=== PATIENT | male | born 1940 | race Caucasian/White ===

== ENCOUNTER 2019-02-08 05:28 | Day surgery (SDC) ==
[2019-02-02 12:41] LABS: HEMATOCRIT 44.6 % (42.0-52.0); MCH 30.4 PG (27-31); MCHC 33.6 g/dL (33-37); MCV 90.5 FL (81-99); MPV 9.9 FL (7.4-10.4); RBC 4.93 XMIL (4.7-6.1); WBC 8.51 X1000 (4.8-10.8)
[2019-02-02 12:59] LABS: AGAP 13; BUN 13 mg/dL (8-22); CALCIUM 9.5 mg/dL (8.8-10.2); CHLORIDE 97 mmol/L (98-107); COSMO 270; CREATININE 0.5 mg/dL (0.7-1.2); ESTIMATED GFR > 60; GLUCOSE 98 mg/dL (70-104); POTASSIUM 4.4 mmol/L (3.5-5.1); SODIUM 135 mmol/L (136-145); TCO2 25 mmol/L (25-35)
[2019-02-08] MEDS ORDERED: KEFZOL 1 GM/D5W 2 GM/100 ML IVPB ONE (06:06)
[2019-02-08] MEDS ORDERED: LR 1,000 ML ONE ×2 (06:06→06:41)
[2019-02-08] MEDS ORDERED: VALIUM ONE (06:23)
[2019-02-08] MEDS ORDERED: XYLOCAINE-MPF 2% ONE (06:37)
[2019-02-08] MEDS ORDERED: QUELICIN (DOSE) ONE (06:37)
[2019-02-08] MEDS ORDERED: ROBINUL ONE ×2 (06:37→07:16)
[2019-02-08] MEDS ORDERED: DIPRIVAN 1% ONE (06:38)
[2019-02-08] MEDS ORDERED: FENTANYL ONE (06:38)
[2019-02-08] MEDS ORDERED: SENSORCAINE 0.25%/EPI 1:200,000 ONE (06:40)
[2019-02-08] MEDS ORDERED: B & O 15A SUPP ONE (06:41)
[2019-02-08] MEDS ORDERED: STERILE WATER INJ. ONE (07:02)
[2019-02-08] MEDS ORDERED: NORCURON ONE ×2 (07:02→08:34)
[2019-02-08] MEDS ORDERED: ZOFRAN ONE (07:16)
[2019-02-08] MEDS ORDERED: NEOSTIGMINE ONE (07:16)
[2019-02-08] MEDS ORDERED: DECADRON ONE (07:16)
[2019-02-08] MEDS ORDERED: EPHEDRINE ONE (07:50)
[2019-02-08 08:16] LABS: URINE SOURCE CATH
[2019-02-08 08:24] LABS: BILIRUBIN URINE NEGATIVE (NEGATIVE); BLOOD URINE NEGATIVE (NEGATIVE); COLOR YELLOW; GLUCOSE URINE NEGATIVE (NEGATIVE); KETONE URINE NEGATIVE (NEGATIVE); LEUKOCYTES URINE NEGATIVE (NEGATIVE); NITRITE URINE NEGATIVE (NEGATIVE); PROTEIN URINE NEGATIVE (NEGATIVE); SP GRAVITY URINE 1.014; TURBIDITY URINE CLEAR (CLEAR); UROBILINOGEN URINE NORMAL (NORMAL)
[2019-02-08 08:25] LABS: UR EPITHELIAL CELLS <10 /HPF (<10); URINE BACTERIA NEGATIVE /HPF; URINE RBC <10 /HPF (<10); URINE WBC <10 /HPF (<10)
[2019-02-08] MEDS ORDERED: NS 1,000 ML ONE (10:59)
[2019-02-08] MEDS ORDERED: MORPHINE IV PRN (12:27)
[2019-02-08] MEDS ORDERED: DITROPAN PO PRN (12:30)
[2019-02-08] MEDS ORDERED: LABETALOL IV PRN (12:30)
[2019-02-08] MEDS ORDERED: BENADRYL LIQUID PO PRN (12:30)
[2019-02-08] MEDS ORDERED: SODIUM CHLORIDE 0.9% INJ PRN (12:30)
[2019-02-08] MEDS ORDERED: PHENERGAN IV PRN (12:30)
[2019-02-08] MEDS ORDERED: OXY IR PO PRN (12:30)
[2019-02-08] MEDS ORDERED: OFIRMEV 1000 MG/ISOTONIC SOLN 1,000 MG/100 ML BOTTLE IV PRN (12:30)
[2019-02-08] MEDS: NS 1,000 ML IV SCH ×2 (14:11→22:33)
[2019-02-08] MEDS: KEFZOL 2 GM/D5W 2 GM/50 ML IVPB IV SCH ×2 (14:11→22:33)
--- NOTE | 2019-02-08 15:05 | OPERATIVE NOTE ---
PROCEDURE DATE: 02/08/2019 SURGEON: Marciano Fragoso MD. PREOPERATIVE DIAGNOSIS: Prostate cancer. POSTOPERATIVE DIAGNOSIS: Prostate cancer. PROCEDURE PERFORMED: Laparoscopic robot-assisted radical retropubic prostatectomy with urethral suspension. ANESTHESIA: General endotracheal. FINDINGS: Normal appearing prostate with attached seminal vesicles and vas deferens. Large amount of intraabdominal adipose tissue. INDICATION FOR PROCEDURE: This 78-year-old male has history of elevated PSA. Transrectal prostate ultrasound and biopsies revealed adenocarcinoma Bi grade 3 + 3 in multiple cores, one core at 90% involvement. The various treatments were discussed with the patient and family for treating prostate cancer and he has decided on radical surgery. DESCRIPTION OF PROCEDURE: After informed consent was obtained from the patient and him receiving IV antibiotics, he was taken the main OR, placed in the supine position. General endotracheal anesthesia was achieved. He was then placed in the low lithotomy position and prepped and draped in the usual sterile fashion for abdominal, penile, scrotal, and perineal surgery. An 18-Kiswahili Neal catheter was passed through the patient's urethra, prostate, and in the bladder. 10 mL sterile water placed in Neal balloon. Neal was placed to gravity drain. A 3 cm incision was made just above the umbilicus. The Veress needle was then used to achieve pneumoperitoneum by placing the needle through that incision and into the peritoneal cavity. A water drop test was performed that revealed the needle in good position. The pneumoperitoneum to 15 cm of water was achieved. The patient is obese and it was felt that a longer trocar may be needed. The administrative sales assistant trocar placed in the left upper quadrant was then placed and a camera was placed through that trocar and it was felt a longer trocar was not needed. The remaining trocars were placed in the standard position. The left trocar (#2 arm) was placed 1-1/2 handbreadths lateral to the camera port. The #1 arm was placed 1 handbreadth to the right of the camera port and the #4 arm was placed just above the anterior superior iliac spine on the right. After the trocars were placed, the patient was placed in steep Trendelenburg and the table lowered all the way down. The robot was docked. The procedure was started by taking down some adhesions. It appeared he had a hernia with the sigmoid colon going into the hernia. The colon was able to be moved out of the way to reach the rectum without difficulty. An incision was made in the peritoneum as it reflected off the rectum about 1 cm up. This was taken through the tissue to the vas deferens on the right. This was dissected free and the left vas was dissected free as well. Both met in the midline indicating there were not ureters. The left vas deferens and its artery was incised. The seminal vesicles bluntly and sharply dissected free. A clip was placed on its vascular pedicle and it was dissected back to the base of the prostate. Right side was accomplished similarly. Attention was then turned to the anterior abdominal wall where an incision was made medial to the internal inguinal ring on the right side. This was taken down to the vas deferens as it went down into the pelvis and up onto the anterior abdominal wall. An incision was made in the peritoneum medial to the internal inguinal ring on the left and dissected up onto the anterior abdominal wall. The medial and median umbilical ligaments were taken down sharply and the bladder was dropped off the anterior abdominal wall with blunt and sharp dissection. This was taken down into the true bony pelvis. The fibrofatty tissue off the anterior and lateral sides of the prostate were removed bluntly and sharply. The endopelvic fascia on the right side was entered lateral to the prostate and this incision was taken back to the base of the prostate and up to the puboprostatic ligaments. The puboprostatic ligament was taken down sharply. Both sides were accomplished similarly. The dorsal vein complex was ligated using a 2-0 V-Loc suture. The suture was passed under the dorsal vein complex but anterior to the urethra. It was then passed through the tail of the suture. The suture was then passed back under the dorsal vein complex, through the periosteum of the pubis, back under the dorsal vein complex and through the periosteum of the pubis. This securely ligated the dorsal vein complex. Attention was then turned to the bladder neck area. The bladder neck was incised at the prostatic vesicular junction and the bladder sharply dissected off the base of the prostate. The bladder was entered. The Neal catheter was pulled out through the cystotomy and used as a traction device. The posterior bladder neck was incised and the bladder completely dissected off the base of the prostate. This went to the previously dissected space where the seminal vesicles and vas deferens were located. The seminal vesicles and vas deferens were brought up through this incision and held in place with the 4th arm. The incised area was enlarged. The prostate pedicles were then taken down with clips and dissected all the way down to the apex of the prostate. Again both sides were accomplished similarly. The dorsal vein tissue as it spread out over the apex of the prostate was incised. The urethra was entered just distal to the prostatic apex. The Neal catheter was visualized and pulled back. The posterior urethra was incised and the remaining fibers of the rectourethralis muscle were incised. The prostate was then placed in an Endo Catch retrieval bag and moved to the side. A 3-0 V-Loc suture was used to anastomose the vesicovisceral fascia to the posterior rhabdosphincter. The ends of these needles were capped to allow it to be placed through the periosteum of the pubis, which will act as a urethral suspension. The bladder was anastomosed to the urethra with a running suture of 3-0 V-Loc. After the anastomosis was complete, the needles were removed. The Neal catheter easily passed into the bladder and irrigated without difficulty. The bladder was distended to over 60 mL. No leakage was seen. The Neal was placed to gravity drain. The previously placed sutures that anastomosed the vesicovisceral fascia to the posterior rhabdosphincter were then passed through the periosteum of the pubis and tension was placed on this to suspend the urethra. The needles were passed out of the body. Surgicel SNoW was then placed on either side of the bladder at the anastomotic area. Pneumoperitoneum was dropped to 3 cm of water and no bleeding was seen. The Endo Catch retrieval bag string was brought out through the camera port. The robot was undocked. Pneumoperitoneum resolved. The patient's table was placed in the supine position. The camera port incision was extended for a total length of about 4 cm. The Bovie electrocautery was used to incise the abdominal rectus fascia. The prostate was removed and sent to Pathology. The abdominal rectus fascia was reapproximated with interrupted sutures of #1 Maxon. The subcutaneous tissue was reapproximated with interrupted sutures of 3-0 Vicryl. The skin was reapproximated with clips. Island dressings were placed. He tolerated the procedure well. Estimated blood loss 50 mL. He was taken to the recovery room, extubated in good condition. cc: Marciano Fragoso MD
[2019-02-08] MEDS: OXY IR PO PRN ×2 (15:59→22:33)
[2019-02-08] MEDS ORDERED: TYLENOL PO PRN (17:22)
[2019-02-08] MEDS: COLACE PO SCH (20:27)
[2019-02-08] MEDS: PEPCID PO SCH (20:27)
[2019-02-08] MEDS ORDERED: ALTACE PO SCH (21:00)
[2019-02-08] MEDS ORDERED: CELEXA PO SCH (21:00)
[2019-02-08] MEDS ORDERED: COREG PO SCH (21:00)
[2019-02-08] MEDS ORDERED: PRAVACHOL PO SCH (21:00)
[2019-02-08] MEDS ORDERED: GLUCOSAMINE PO SCH (21:00)
[2019-02-09] MEDS: OXY IR PO PRN (03:46)
[2019-02-09 07:08] LABS: HEMATOCRIT 39.8 % (42.0-52.0); HEMOGLOBIN 13.1 g/dL (14.0-18.0); MCH 30.9 PG (27-31); MCHC 32.9 g/dL (33-37); MCV 93.9 FL (81-99); MPV 10.2 FL (7.4-10.4); RBC 4.24 XMIL (4.7-6.1); WBC 12.33 X1000 (4.8-10.8)
[2019-02-09 07:36] LABS: AGAP 10; BUN 9 mg/dL (8-22); CALCIUM 7.7 mg/dL (8.8-10.2); CHLORIDE 103 mmol/L (98-107); COSMO 277; CREATININE 0.7 mg/dL (0.7-1.2); ESTIMATED GFR > 60; GLUCOSE 116 mg/dL (70-104); POTASSIUM 4.6 mmol/L (3.5-5.1); SODIUM 139 mmol/L (136-145); TCO2 26 mmol/L (25-35)
[2019-02-09 07:37] VITALS: BP 129/64
[2019-02-09] MEDS: COLACE PO SCH (09:02)
[2019-02-09] MEDS: PEPCID PO SCH (09:02)
== END 2019-02-09 10:35 | disposition home or self-care (01) ==
LOC: OR 05:28 → 4N 05:28 → OR 02-09 10:35
PROVIDERS: ATTEND Urology